=== PATIENT | male | born 1945 | race Caucasian/White ===

== ENCOUNTER → 2022-06-01 | Outpatient (CLI) | payer MEDICARE ==
--- NOTE | 2022-06-01 14:19 | US ---
EXAMINATION TYPE: US kidneys/renal and bladder DATE OF EXAM: 06/01/2022 COMPARISON: NONE CLINICAL HISTORY: N28.9 ACUTE RENAL INSUFFICIENCY. renal insufficiency EXAM MEASUREMENTS: Right Kidney: 11.9 x 4.6 x 5.1 cm Left Kidney: 12.0 x 4.7 x 4.1 cm Right Kidney: dilated renal pelvis Left Kidney: lobulated contour, no evidence of hydronephrosis Bladder: appears wnl Bilateral Jets seen: yes No nephrolithiasis is seen. No masses are identified. The urinary bladder is anechoic. Bilateral u reteral jets are seen. IMPRESSION: Mild right-sided hydronephrosis.
== END | disposition home or self-care (01) ==
LOC: RADUSWWP 13:21
PROVIDERS: ATTEND Internal Medicine
DX: N13.30 Unspecified hydronephrosis (principal)
CPT/HCPCS: 76770

== ENCOUNTER → 2024-03-11 | Outpatient (CLI) | payer MEDICARE, BC | END | disposition home or self-care (01) | LOC: LABPRL 12:34 | PROVIDERS: ATTEND Internal Medicine | DX: E11.9 Type 2 diabetes mellitus without complications (principal) | CPT/HCPCS: 82043; 82570 ==